=== PATIENT | female | born 2000 | race Caucasian/White ===

== ENCOUNTER 2021-02-02 12:27 | Emergency (ER) | payer OTHER ==
[~2021-02-02] VITALS: Ht 165.1 cm; Wt 77.1 kg
--- NOTE | 2021-02-02 12:27 | NUR ---
Patient BIBA ALS accompanied by [id number], transferred to bed 7. RN evaluating the patient at bedside.
--- NOTE | 2021-02-02 12:28 | NUR ---
Dr. Rose is evaluating the patient at bedside.
--- NOTE | 2021-02-02 12:28 | NUR ---
20 y/o f BIBA with c/c chest pain. 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 Patient states pain 6/10, pressure/constant, nonradiating and states it feels like a previous anxiety attack. Patient states associated numbness, tingling and was scared. Pt denies any SOB, dizziness, abdominal pain. 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
[2021-02-02] MEDS ORDERED: LORazepam 0.5 MG TAB PO ONE (12:30)
[2021-02-02] MEDS ORDERED: ACETAMINOPHEN 325 MG TAB PO ONE (12:30)
[2021-02-02 12:31] VITALS: BP 135/81
--- NOTE | 2021-02-02 12:43 | NUR ---
EMT at bedside for EKG
--- NOTE | 2021-02-02 12:51 | NUR ---
Xray at bedside
--- NOTE | 2021-02-02 14:11 | NUR ---
20 Y/O FEMALE C/O 10 CHEST PAIN WITH TOTAL BODY NUMBNESS. PT STATES CHEST PAIN HAS BEEN GOING ON X 2 DAYS AND NUMBNESS STARTED TODAY WHILE DRIVING. DENIES PMH NKA
== END 2021-02-02 14:09 | disposition home or self-care (01) ==
LOC: MED 12:27
DX: F41.1 Generalized anxiety disorder (principal); R07.89 Other chest pain
CPT/HCPCS: 71045; 93005; 99283